=== PATIENT | male | born 1965 | race Caucasian/White ===

== ENCOUNTER 2022-10-03 11:25 | Emergency (ER) | payer OTHER ==
[~2022-10-03] VITALS: Ht 172.7 cm; Wt 68.0 kg
--- NOTE | 2022-10-03 11:38 | NUR ---
PT IS IN ROOM #2B. DR HEARN EVALUATED THE PT.
[2022-10-03] MEDS ORDERED: FAMOTIDINE. 20 MG/2 ML VIAL IV ONE ×2 (11:43→11:45)
[2022-10-03] MEDS ORDERED: ONDANSETRON 4 MG/2 ML VIAL ONE (11:43)
[2022-10-03] MEDS ORDERED: KETOROLAC TROMETHAMINE 30 MG INJ ONE (11:43)
[2022-10-03] MEDS ORDERED: IV NORMAL SALINE 1000 ML BAG IV ONE ×2 (11:45→13:00)
[2022-10-03] MEDS ORDERED: ONDANSETRON 4 MG/2 ML VIAL IV ONE (11:45)
[2022-10-03] MEDS ORDERED: KETOROLAC TROMETHAMINE 15 MG INJ IVP ONE (11:45)
[2022-10-03 12:04] LABS: MEAN CORPUSCULAR HEMOGLOBIN 32.5 uug (23.8-33.4); MEAN CORPUSCULAR VOLUME 95.1 fL (73.0-96.2); PLATELET COUNT (AUTO) 175 K/uL (152-348)
[2022-10-03 12:13] LABS: CREATININE 1.3 mg/dL (0.6-1.3); POTASSIUM 4.6 mmol/L (3.5-5.1)
[2022-10-03 12:22] LABS: BILIRUBIN,DIRECT 0.3 mg/dL (0.0-0.2); BILIRUBIN,TOTAL 0.9 mg/dL (0.2-1.0); TOTAL PROTEIN, SERUM 7.2 g/dL (6.4-8.2)
[2022-10-03] MEDS ORDERED: ACETAMINOPHEN ES 500 MG TABLET ONE (12:29)
[2022-10-03] MEDS ORDERED: ACETAMINOPHEN ES 500 MG TABLET PO ONE (12:30)
[2022-10-03] MEDS ORDERED: METO-295 PO (13:16)
[2022-10-03] MEDS ORDERED: DICY10CA13 PO (13:16)
--- NOTE | 2022-10-03 14:26 | NUR ---
PT WAS D/C'd TO HOME. D/C INSTRUCTIONS GIVEN TO THE PT BY DR HEARN.
[2022-10-03 14:27] VITALS: BP 139/82
== END 2022-10-03 14:29 | disposition home or self-care (01) ==
LOC: ER 11:25
DX: R11.2 Nausea with vomiting, unspecified (principal); R19.7 Diarrhea, unspecified; E86.0 Dehydration; R10.9 Unspecified abdominal pain; Z20.822 Contact with and (suspected) exposure to COVID-19
CPT/HCPCS: 99285; 74176; 96374; 96361; 96375; 87426; 87804 ×2; 80076; 80048; 83690; 85025; J3490; J1885; J2405; J7040 ×2; 36415; A4663; A9150